=== PATIENT | male | born 1960 | race American Indian/Alaskan Native ===

== ENCOUNTER 2016-11-16 07:24 | Emergency (ER) | payer BC ==
[2016-11-16] MEDS ORDERED: TYLENOL ONE (07:45)
[2016-11-16] MEDS ORDERED: TYLENOL PO ONE (07:48)
--- NOTE | 2016-11-16 09:00 | XRay Report ---
RIGHT RIBS: Trauma, pain. Routine views of the rib cage demonstrate normal mineralization with no significant contour abnormalities, fractures or destructive lesions. PA view of the chest demonstrates no underlying cardiopulmonary abnormalities, fluid or pneumothorax. IMPRESSION: Normal right rib series.
[2016-11-16] MEDS ORDERED: DUONEB *Not for PRN Use IH ONE (10:36)
[2016-11-16] MEDS ORDERED: ULTRAM PO ONE (10:37)
--- NOTE | 2016-11-16 10:39 | Emergency Department Report ---
ED Fall HPI - General Chief Complaint: Fall Stated Complaint: RT SIDE PAIN sp ground level fall over the edge of a trash compactor no loc; days ago Time Seen by Provider: 11/16/16 10:24 Source: patient Mode of arrival: Ambulatory Limitations: No Limitations - History of Present Illness MD Complaint: fall -: Sudden (fall and did not get better. ) Fall From: standing When Fall Occurred: other (days ago) Fall Witnessed: yes, by family Place Fall Occurred: home Loss of Consciousness: none Prolonged Down Time?: no Symptoms Prior to Fall: none Severity: severe Severity scale (0 -10): 10 Quality: aching (no home meds) Associated Symptoms: denies. denies: headache, neck pain, numbness, weakness, chest paint, shortness of breath, abdominal pain, hematuria, unable to walk, lightheaded, vertigo, confusion - Related Data Previous Rx's Medication Instructions Recorded Last Taken Type traMADol [Ultram] 50 mg PO Q6HR PRN #10 tablet 11/16/16 Unknown Rx Allergies Allergy/AdvReac Type Severity Reaction Status Date / Time No Known Allergies Allergy Verified 11/16/16 07:31 ED Review of Systems ROS: Stated complaint: RT SIDE PAIN Other details as noted in HPI Comment: All other systems reviewed and negative Constitutional: no symptoms reported, see HPI. denies: chills Eyes: as per HPI. denies: eye pain ENT: as per HPI. denies: ear pain, throat pain Respiratory: no symptoms reported, see HPI. denies: cough, orthopnea Cardiovascular: as per HPI, other (localized area of r side pain w no sob ). denies: chest pain, palpitations, dyspnea on exertion, orthopnea, edema, syncope , paroxysmal nocturnal dyspnea Endocrine: no symptoms reported, see HPI. denies: excessive sweating, flushing , intolerance to cold, intolerance to heat Gastrointestinal: as per HPI, vomiting. denies: abdominal pain, nausea, diarrhea, constipation, hematemesis, melena, hematochezia Genitourinary: as per HPI. denies: urgency, dysuria, frequency, hematuria, discharge Musculoskeletal: as per HPI, back pain, other (localized pain that inc w movement wo associated s/s). denies: joint swelling, arthralgia Skin: as per HPI. denies: rash, lesions Neurological: as per HPI. denies: headache, weakness Psychiatric: as per HPI. denies: anxiety, depression Hematological/Lymphatic: as per HPI. denies: easy bleeding ED Past Medical Hx - Past Medical History Previous Medical History?: Yes Additional medical history: Brain aneurysm w clip 5 y ago - Surgical History Past Surgical History?: Yes Additional Surgical History: Brain Aneurysm - Family History Family history: no significant - Social History Smoking Status: Current Every Day Smoker Substance Use Type: Alcohol, Other (daily etoh. denies home meds) - Medications Home Medications: Home Medications Medication Instructions Recorded Confirmed Last Taken Type traMADol [Ultram] 50 mg PO Q6HR PRN #10 tablet 11/16/16 Unknown Rx ED Physical Exam - General Limitations: No Limitations, Physical Limitation General appearance: alert, in no apparent distress - Head Head exam: Present: atraumatic - Eye Eye exam: Present: normal appearance, PERRL. Absent: EOMI - ENT ENT exam: Present: normal exam, mucous membranes moist, TM's normal bilaterally - Neck Neck exam: Present: normal inspection, full ROM. Absent: tenderness, meningismus, lymphadenopathy, thyromegaly - Respiratory Respiratory exam: Present: wheezes (b), chest wall tenderness (r lower side over ribs w mild swelling and faint ecchymosis). Absent: respiratory distress, rales, rhonchi, stridor, accessory muscle use, decreased breath sounds, prolonged expiratory - Cardiovascular Cardiovascular Exam: Present: regular rate, tachycardia (rate 100 on triage 90 on reassess), normal heart sounds. Absent: normal rhythm, bradycardia, irregular rhythm, systolic murmur, diastolic murmur, rubs, clicks, JVD, S3, S4 - GI/Abdominal GI/Abdominal exam: Present: soft, normal bowel sounds. Absent: distended, tenderness, guarding, rebound, rigid, diminished bowel sounds, hyperactive bowel sounds, hypoactive bowel sounds, organomegaly, mass, bruit, pulsatile mass , hernia - Rectal Rectal exam: Present: deferred - Extremities Exam Extremities exam: Present: normal inspection, full ROM, normal capillary refill. Absent: tenderness, pedal edema, joint swelling - Back Exam Back exam: Present: normal inspection, full ROM, tenderness. Absent: CVA tenderness (R), CVA tenderness (L), muscle spasm, paraspinal tenderness, vertebral tenderness, rash noted - Neurological Exam Neurological exam: Present: alert, oriented X3, CN II-XII intact, normal gait, reflexes normal. Absent: motor sensory deficit - Psychiatric Psychiatric exam: Present: normal affect, normal mood - Skin Skin exam: Present: warm, dry, intact, normal color ED Course Vital Signs 11/16/16 11/16/16 11/16/16 07:31 10:52 11:02 Temperature 98.1 F Pulse Rate 100 H Pulse Rate [ 65 64 Anterior Bilateral Throughout] Respiratory 20 18 Rate Respiratory 20 20 Rate [Anterior Bilateral Throughout] Blood Pressure 156/109 O2 Sat by Pulse 100 Oximetry - Reevaluation(s) Reevaluation #1: 11/16/16 to er sp fall over trash compactor a few days ago he is a well appearing male no meds he had pain w movement to the lower r rib cage on lateral r side guarded on exam xray noted on exam wheezing bilateral rt tx given denies resp disease discussed w pt that he will need to see pcp to evaluate for ? copd from his work environment lungs cleared w rt pt did not have dec in pain initially labs drawn noted discussed w pt at this point in time pt was ambulatory and smiling feeling much better. discussed etoh use Reevaluation #2: 11/16/16 13:20 walking in room smiling and feeling better at present labs reviewed w pt. will dc but instructed to return if he has any progressive s/s e.g n/v/d etc. verbalizes understanding requesting pain meds follow up instructions provided Reevaluation #3: 11/16/16 13:35 bp 150/70 on dc ED Medical Decision Making - Lab Data Result diagrams: 11/16/16 12:21 11/16/16 12:21 - Radiology Data Radiology results: report reviewed, image reviewed - Medical Decision Making vss no fever non ill appearing non toxic ambulatory no cp or sob sp glf w localized r rib pain lateral lower r side labs noted pain relieved dc home w return instructions - Differential Diagnosis ro rib fx Critical care attestation.: If time is entered above; I have spent that time in minutes in the direct care of this critically ill patient, excluding procedure time. ED Disposition Clinical Impression: Fall, Contusion of rib on right side, Rib pain Disposition: DC-01 TO HOME OR SELFCARE Is pt being admited?: No Does the pt Need Aspirin: No Condition: Stable Instructions: Rib Fracture (ED), Chest Pain (ED) Additional Instructions: rest hydrate with water limit alcohol med as ordered today FOLLOW UP WITH PCP- NAME PROVIDED HERE return if worsening s/s Referrals: PRIMARY CAREMD [Primary Care Provider] - 3-5 Days SUSANNE ISABEL MD [Staff Physician] - 3-5 Days Forms: Work/School Release Form(ED) Time of Disposition: 13:21
[2016-11-16 12:26] LABS: Bilirubin,Urine NEG (Negative); Blood,Urine NEG (Negative); Ketones,Urine TR mg/dL (Negative); Leukocyte Esterase,Urine SM (Negative); Mucus,Urine FEW /HPF; Nitrite,Urine NEG (Negative)
[2016-11-16 12:34] LABS: Basophils % (Auto) 0.3 % (0.0-1.8); Eosinophils % (Auto) 0.5 % (0.0-4.3); Hematocrit 43.8 % (35.5-45.6); Hemoglobin 15.1 gm/dl (11.8-15.2); Mean Corpuscular HGB Conc 35 % (32-34); Mean Corpuscular Hemoglobin 32 pg (28-32); Mean Corpuscular Volume 93 fl (84-94); Platelet Count 174 K/mm3 (140-440); Red Blood Count 4.72 M/mm3 (3.65-5.03); Red Cell Distribution Width 13.1 % (13.2-15.2); White Blood Count 5.7 K/mm3 (4.5-11.0)
[2016-11-16 12:44] LABS: INR 1.04 (0.87-1.13)
[2016-11-16 12:54] LABS: Alanine Aminotransferase 25 units/L (7-56); Albumin/Globulin Ratio 0.8 %; Alkaline Phosphatase 61 units/L (35-129); Amylase 185 units/L (27-131); Anion Gap 18 mmol/L; BUN/Creatinine Ratio 17.14; Blood Urea Nitrogen 12 mg/dL (9-20); Calcium 9.3 mg/dL (8.4-10.2); Carbon Dioxide 26 mmol/L (22-30); Chloride 98.1 mmol/L (98-107); Glucose 109 mg/dL (75-100); Lipase 26 units/L (13-60); Potassium 4.7 mmol/L (3.6-5.0); Sodium 137 mmol/L (137-145); Total Protein 8.9 g/dL (6.3-8.2)
[2016-11-16 13:06] LABS: Bilirubin,Direct < 0.2 mg/dL (0-0.2)
[2016-11-16 13:41] VITALS: BP 175/69
== END 2016-11-16 13:39 | disposition home or self-care (01) ==
LOC: ED 07:24
DX: S20.211A Contusion of right front wall of thorax, initial encounter (principal); F17.210 Nicotine dependence, cigarettes, uncomplicated; W18.30XA Fall on same level, unspecified, initial encounter; Y93.89 Activity, other specified; Y92.89 Other specified places as the place of occurrence of the external cause; Y99.8 Other external cause status
CPT/HCPCS: 36415; 71101; 80048; 80074; 81001; 82150; 83690; 85025; 85610; 94640; 96372; 99284; J2930